=== PATIENT | female | born 1935 | race Caucasian/White ===

== ENCOUNTER 2023-01-03 15:44 | Emergency (ER) | payer MEDICARE, BC ==
[~2023-01-03] VITALS: Ht 162.6 cm; Wt 63.5 kg
[2023-01-03 16:23] LABS: HEMATOCRIT 34.3 % (31.2-41.9); MEAN CORPUSCULAR HEMOGLOBIN 30.7 uug (24.7-32.8); MEAN CORPUSCULAR VOLUME 92.5 fL (75.5-95.3); PLATELET COUNT (AUTO) 217 K/uL (179-408)
--- NOTE | 2023-01-03 16:25 | NUR ---
PT IS IN ROOM #1A. DR CHANDLER EVALUATED THE PT.
[2023-01-03 16:36] LABS: BILIRUBIN,DIRECT 0.2 mg/dL (0.0-0.2); BILIRUBIN,TOTAL 0.5 mg/dL (0.2-1.0); CREATININE 0.7 mg/dL (0.6-1.3); POTASSIUM 3.7 mmol/L (3.5-5.1); TOTAL PROTEIN, SERUM 7.2 g/dL (6.4-8.2)
[2023-01-03] MEDS ORDERED: SERT-440 MT (16:45)
[2023-01-03] MEDS ORDERED: PRAV80TA21 MT (16:45)
[2023-01-03] MEDS ORDERED: RIVA1.5C13 MT (16:45)
[2023-01-03] MEDS ORDERED: QUET50TA24 MT (16:45)
[2023-01-03] MEDS ORDERED: LOSA100T31 MT (16:45)
[2023-01-03 17:17] LABS: *BILIRUBIN,URIN NEGATIVE (NEGATIVE); *BLOOD, URINE NEGATIVE (NEGATIVE); *CLARITY,URINE CLEAR (CLEAR); *COLOR,URINE YELLOW (YELLOW); *KETONES,URINE NEGATIVE (NEGATIVE); *UROBILINOGEN,URINE 0.2 E.U./dl (NORMAL); LEUKOCYTE ESTERASE ,URINE NEGATIVE (NEGATIVE); NITRITE, URINE NEGATIVE (NEGATIVE); UGLUCOSE NEGATIVE (NEGATIVE)
[2023-01-03] MEDS ORDERED: DOXYCYCLINE HYCLATE 100 MG TABLET ONE (17:54)
[2023-01-03] MEDS ORDERED: DOXY100C5 PO (17:58)
[2023-01-03] MEDS ORDERED: DOXYCYCLINE HYCLATE 100 MG TABLET PO ONE (18:00)
[2023-01-03] MEDS ORDERED: ONDANSETRON 4 MG/2 ML VIAL ONE (18:07)
--- NOTE | 2023-01-03 18:46 | NUR ---
PT WAS D/C'D TO HOME. D/C INSTRUCTIONS GIVEN TO THE PT [facility].
[2023-01-03 18:57] VITALS: BP 141/81
== END 2023-01-03 18:59 | disposition home or self-care (01) ==
LOC: ER 15:44
DX: R53.1 Weakness (principal); R33.9 Retention of urine, unspecified; F03.90 Unspecified dementia, unspecified severity, without behavioral disturbance, psychotic disturbance, mood disturbance, and anxiety; R91.8 Other nonspecific abnormal finding of lung field; Z85.3 Personal history of malignant neoplasm of breast; R94.31 Abnormal electrocardiogram [ECG] [EKG]
CPT/HCPCS: 36415; 51702; 71045; 83690; 84484; 85025; 93005; A4663; J2405; J7040